=== PATIENT | male | born 1970 | race Caucasian/White ===

== ENCOUNTER 2017-12-11 08:25 | Emergency (ER) | payer MEDICAID | END 2017-12-11 10:34 | disposition home or self-care (01) | LOC: E/R 08:25 | DX: R05 Cough (principal); R50.9 Fever, unspecified; Z87.891 Personal history of nicotine dependence | CPT/HCPCS: 99284; Z7502 ==

== ENCOUNTER 2018-11-16 09:20 | Emergency (ER) | payer MEDICAID | END 2018-11-16 09:46 | disposition home or self-care (01) | LOC: FTE 09:20 | DX: M67.432 Ganglion, left wrist (principal) | CPT/HCPCS: 99282; Z7502 ==

== ENCOUNTER 2019-01-02 08:25 | Emergency (ER) | payer MEDICAID | END 2019-01-02 09:44 | disposition home or self-care (01) | LOC: FTE 08:25 | DX: M67.432 Ganglion, left wrist (principal) | CPT/HCPCS: 29125; 99282-25 ==